=== PATIENT | male | born 1945 | race Caucasian/White ===

== ENCOUNTER 2017-12-26 22:55 | Emergency (ER) | payer OTHER ==
[2017-12-26 23:15] VITALS: BMI 33.0
[2017-12-26] MEDS ORDERED: CATAPRES TAB 0.2 MG PO ONE (23:40)
[2017-12-26] MEDS ORDERED: CATAPRES TAB 0.2 MG ONE (23:41)
--- NOTE | 2017-12-26 23:43 | DR.GENAD ---
HPI - PCP Primary Care Physician: MARCOS - Complaint/Symptoms Chief Complaint Doctors Comments: Patient states that he has been having trouble keeping his blood pressure under control. He has been keeping recorded history and presenting to his pcp. Chief Complaint:: PT C/O BP BEING ELEVATED PT TOOK COREG 12.5 TONIGHT AT 1930 - Source History Provided: Patient - Mode of Arrival Mode of Arrival: Ambulatory - Timing Onset of Chief Complaint: 12/26/17 PMH - PMH Past Medical History: Yes Past Medical History: Dyslipidemia, Gout, Hypertension Past Surgical History: Yes Surgical History: Angioplasty/Stents Past Surgical History Comment: RT LUNG MASS REMOVED WAS CANCER NECK SURGERY HERNIA - Family History History of Family Medical Conditions: No - Social History Does patient currently use any type of tobacco product: No Have you used tobacco products in the last 12 months: No Does any household member use tobacco: No Alcohol Use: None Do you use any recreational Drugs:: No Lives With: Spouse Lives Where: Home - infectious screening In the last 2 months have you had wt loss of >10#?: NO Have you had fever, night sweats or hemotysis?: No Have you traveled outside the country in the last 6 months?: No Isolation: Standard ROS - Review of Systems Eyes: No Symptoms Reported ENTM: No Symptoms Reported Respiratoy: No Symptoms Reported Cardiovascular: No Symptoms Reported Gastrointestinal/Abdominal: No Symptoms Reported Genitourinary: No Symptoms Reported Neurological: No Symptoms Reported Musculoskeletal: No Symptoms Reported Integumentary: No Symptoms Reported Hematologic/Lymphatic: No Symptoms Reported Endocrine: No Symptoms Reported Psychiatric: No Symptoms Reported All Other Systems: Reviewed and Negative PE - Vital Signs Vitals: Temperature 98.3 F Pulse Rate 72 Respiratory Rate 18 Blood Pressure [Left Arm] 185/91 Blood Pressure [Right Arm] 196/98 Blood Pressure 222/102 O2 Sat by Pulse Oximetry 99 - General Limitations: No Limitations General Appearance: Alert, In No Apparent Distress - Head Head Exam: Normal Inspection, Atraumatic - Eyes Eye exam: Normal Appearance, PERRL, EOMI - ENT ENT Exam: Normal Exam External Ear Exam: Normal External Inspection TM/Canal Exam: Bilateral Normal Nose Exam: Normal Nose Exam Mouth Exam: Normal Inspection Throat Exam: Normal Inspection - Neck Neck Exam: Normal Inspection, Full ROM - Chest Chest Inspection: Normal Inspection - Respiratory Respiratory Exam: Normal Lung Sounds Bilat Respiratory Exam: Bilateral Clear to Auscultation - Cardiovascular Cardiovascular Exam: Regular Rate, Normal Rhythm - Abdominal Exam Abdominal Exam: Normal Inspection, Normal Bowel Sounds Abdominal Tenderness: negative: RUQ, RLQ, LUQ, LLQ, Epigastrium, Suprapubic, Diffuse, Mild, Moderate, Severe, Other - Extremities Extremities Exam: Normal Inspection - Back Back Exam: Normal Inspection - Neurologic Neurological Exam: Alert, Oriented X3, CN II-XII Intact - Psychiatric Psychiatric Exam: Normal Affect, Normal Mood - Skin Skin Exam: Warm, Dry, Intact Course - Reevaluation 1st: Improved - Diagnosis Discharge Problem: uncontrolled blood pressure - Discharge Plan Condition: Stable - Follow ups/Referrals Follow ups/Referrals: NFD,None [Primary Care Provider] - 3 days - Instructions
[2017-12-27] MEDS ORDERED: CATAPRES TAB 0.2 MG PO ONE (00:53)
[2017-12-27] MEDS ORDERED: CATAPRES TAB 0.2 MG ONE (00:54)
[2017-12-27 02:00] VITALS: BP 187/79
== END 2017-12-27 02:05 | disposition home or self-care (01) ==
LOC: ER 22:55
DX: I10 Essential (primary) hypertension (principal)
CPT/HCPCS: 99282; 99283

== ENCOUNTER → 2018-01-13 | Outpatient (CLI) | payer OTHER ==
--- NOTE | 2018-01-13 15:28 | VAS ---
History: Carotid stenosis Study: Carotid duplex ultrasound Comparison: None Findings: Images show circumferential calcified plaque formation in the right carotid bulb and in the distal left common carotid artery extending into the carotid bulb. Peak systolic velocity in the distal right common carotid artery is 85.3 centimeters/second compared to 55.5 cm per 2nd in the right internal carotid artery for ratio of 0.65. On the left the peak systolic velocity in the common carotid artery is 75.2 centimeters/second compar ed to 77.6 centimeters/second in the left internal carotid artery. There is antegrade flow in the vertebral arteries. Impression: Calcified plaque formation at the carotid bifurcations bilaterally. No evidence for significant steno sis. Reported By:
== END ==
LOC: RAD 13:34
PROVIDERS: ATTEND Internal Medicine Cardiovascular Disease
DX: R00.8 Other abnormalities of heart beat (principal); I65.23 Occlusion and stenosis of bilateral carotid arteries
CPT/HCPCS: 93306; 93880